=== PATIENT | male | born 2005 | race Caucasian/White ===

== ENCOUNTER 2025-02-13 20:52 | Emergency (ER) | payer MEDICARE, MEDICAID, SELFPAY ==
[2025-02-13 21:06] VITALS: BP 115/79; PULSE 103; RESP 16; TEMP 36.3; O2SAT 95; BMI 25.0
[2025-02-13] MEDS: ondansetron 2 mg/ML SDV 2 mL 4 MG IM (21:22)
[2025-02-13] MEDS: ketamine 100 mg/mL Inj 5 mL 50 MG IM (21:22)
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
[2025-02-13 22:05] VITALS: PULSE 98; RESP 18; O2SAT 96
== END 2025-02-13 22:05 | disposition home or self-care (01) ==
PROVIDERS: Emergency Provider Physician Assistant
DX: R45.6 Violent behavior (principal)
CPT/HCPCS: 96372; 99284; J2405; J3490; J9999